=== PATIENT | female | born 1955 | race Caucasian/White ===

== ENCOUNTER → 2017-05-14 | Outpatient (CLI) | payer BC ==
[~2017-05-14] MED LIST: ADVIL200 MG PO; ATIVAN1 MG PO; COLCHICINE0.6 MG PO; DAYPRO600 M1 PO; FLEXERIL5 MG PO; HYDROCODONE BIT1 T11 PO; INDOCIN25 MG PO; MOTRIN800 MG PO; NAPROSYN500 MG PO; VICODIN 5/500 505 MG PO; VICODIN ES 7501 TAB PO; ZOFRAN ODT4 MG SL
[2017-05-14 16:06] LABS: BODY FLUID WBC 6834 /uL
[2017-05-14 17:54] LABS: BF LYMPHOCYTES 1 %; BF MACROPHAGES 12 %; BF NEUTROPHILS 87 %
[2017-05-15 15:12] LABS: ACID FAST SMEAR Negative (.)
== END | disposition home or self-care (01) ==
LOC: LAB 14:48
PROVIDERS: Physician Assistant
DX: M25.461 Effusion, right knee (principal)

== ENCOUNTER 2018-09-12 15:02 | Inpatient (IN) | payer BC ==
--- NOTE | 2018-09-11 19:10 | NUR ---
A 62, admitted to 4E, under the services of HARMAN Taylor DO with a diagnosis of ACUTE BRONCHITIS, TACHYCARDIA. Chief complaint is COUGH, COLD-LIKE SYMPTOMS. Patient arrived via ambulatory from ER. Monitor applied. Initial assessment completed. Vital signs taken and recorded. HARMAN TAYLOR DO notified of admission to the unit. Orders received. See assessment for past medical history, medications and allergies. Patient and/or family oriented to unit. [facility] visitation policy reviewed. Clothing/patient valuable form completed. FRANKY GUZMAN
[~2018-09-12] VITALS: Ht 162.5 cm; Wt 67.7 kg
[2018-09-12] VITALS (8 sets, daily range): BP systolic 142–168; BP diastolic 94–101
--- NOTE | ~2018-09-12 | EKG ---
[place], [place] ELECTROCARDIOGRAM REPORT NAME: CHEN GRANADOS UNIT #: [id number] ROOM: 415 DOCTOR: CLAUDIO DRAFT REPORT BIRTHDATE: [birth year] [facility] Test Date: 2018-09-12 Test Time: 19:59:52 Pat Name: CHEN GRANADOS Department: Room: [facility] 1 Gender: F Shoulder Sawyer: Delmis Pineda : 1955 Requested By: NIRALI MORENO Order Number: [id number] Reading MD: Thai Cee MD Measurements Intervals [place] Rate: 111 P: 10 MA: 162 QRS: 47 QRSD: 81 T: 25 QT: 348 QTc: 473 Interpretive Statements Sinus tachycardia Consider left ventricular hypertrophy Electronically Signed On 09-13-2018 10:50:56 PST by Thai Cee MD CM:EKGRPT:ELECTROCARDIOGRAM REPORT [id number] NIRALI SOUTH DRAFT REPORT NIRALI MORENO DO
--- NOTE | ~2018-09-12 | EKG ---
[place], [place] ELECTROCARDIOGRAM REPORT NAME: CHEN GRANADOS UNIT #: [id number] ROOM: 415 DOCTOR: CLAUDIO DRAFT REPORT BIRTHDATE: [birth year] [facility] Test Date: 2018-09-12 Test Time: 15:52:10 Pat Name: CHEN GRANADOS Department: Room: 415 Gender: F Manufacturing Industrial Engineer: KELECHI : 1955 Requested By: PK MORENO Order Number: [id number] Reading MD: Thai Cee MD Measurements Intervals [place] Rate: 116 P: 76 IN: 139 QRS: 34 QRSD: 85 T: 14 QT: 330 QTc: 459 Interpretive Statements Sinus tachycardia Probable left atrial enlargement Electronically Signed On 09-13-2018 10:49:14 PST by Thai Cee MD CM:EKGRPT:ELECTROCARDIOGRAM REPORT [id number] S[address]TH DRAFT REPORT PK MORENO DO
--- NOTE | ~2018-09-12 | EKG ---
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
[2018-09-12 15:50] LABS: BASO # 0.1 10*3/uL (0.0-0.1); BASO % 0.8 % (0.0-1.0); EOS # 0.2 10*3/uL (0.0-0.4); EOS % 1.9 % (1.0-4.0); HEMATOCRIT 43.6 % (37.0-47.0); HEMOGLOBIN 13.9 g/dl (12.0-16.0); LYMPH # 1.8 10*3/uL (1.3-4.4); LYMPH % 18.6 % (27.0-41.0); MEAN CORPUSCULAR HGB CONC 31.9 g/dl (33.0-37.0); MEAN PLATELET VOLUME 9.2 fl (9.6-12.3); MONO # 0.5 10*3/uL (0.1-1.0); MONO % 5.1 % (3.0-9.0); NEUT # 7.3 10*3/uL (2.3-7.9); NEUT % 73.4 % (47.0-73.0); PLATELET COUNT AUTOMATED 301 10*3/uL (130-400); RED BLOOD COUNT 4.79 10*6/uL (4.10-5.10); RED CELL DISTRI WIDTH 12.1 % (0-14.5); WHITE BLOOD COUNT 9.9 10*3/uL (4.8-10.8)
[2018-09-12 15:59] LABS: INTERNATIONAL NORM RATIO 0.9 (2.0-3.5)
[2018-09-12 16:07] LABS: ALBUMIN 3.9 gm/dl (3.1-4.5); ALKALINE PHOSPHATASE 57 U/L (45-117); BUN 13 mg/dl (7-24); CHLORIDE 107 mmol/L (98-107); LIPASE 196 U/L (73-393); POTASSIUM 3.7 mmol/L (3.5-5.1); SGOT/AST 26 IU/L (3-35); SGPT/ALT 39 U/L (12-78); SODIUM 143 mmol/L (136-145); TOTAL PROTEIN 7.5 gm/dL (6.4-8.2)
[2018-09-12 16:09] LABS: TROPONIN I < 0.015 ng/ml (<0.045)
--- NOTE | 2018-09-12 18:16 | NUR ---
PT RETURNED FROM CT SCAN @ THIS TIME AND NO ADDITIONAL COMPLAINTS VOICED,FAMILY FRIEND @ BEDSIDE.
[2018-09-12 18:58] LABS: BILIRUBIN NEGATIVE (NEGATIVE); BLOOD NEGATIVE (NEGATIVE); CLARITY CLEAR (CLEAR); COLOR YELLOW (YELLOW); GLUCOSE NEGATIVE (NEGATIVE); KETONE 2+ (NEGATIVE); LEUKO ESTERASE NEGATIVE (NEGATIVE); NITRITE NEGATIVE (NEGATIVE); PH 5.5 (5.0-9.0); SPECIFIC GRAVITY 1.025 (1.005-1.030); UROBILINOGEN 0.2 E.U./dl (0.2-1.0)
[2018-09-12 19:17] LABS: WBC 0-2 wbc/hpf (0-5)
[2018-09-12] MEDS ORDERED: DICLOFENAC SOD75 MG PO (19:20)
--- NOTE | 2018-09-12 19:20 | NUR ---
MED REC UP TO DATE PER PT RECALL. PATIENT IS AWAKE, ALERT, AND ORIENTED TO PERSON, PLACE, AND TIME.
--- NOTE | 2018-09-12 19:43 | NUR ---
NOTIFIED OF MANUAL BP 148/96 WITH HR 120S-130S. ALSO DISCUSSED EKG. RN WILL CALL WHEN NEXT EKG DONE.
--- NOTE | 2018-09-12 20:00 | NUR ---
IV METOPROLOL GIVEN PER ONE TIME ORDER. EKG IN ROOM. WILL NOTIFY MD WHEN DONE.
--- NOTE | 2018-09-12 20:05 | NUR ---
NOTIFIED OF EKG DONE. HR 111. INSTRUCTED TO TAKE VITALS Q1H X3 HOURS AND CALL WITH HR EACH HOUR.
--- NOTE | 2018-09-12 21:47 | NUR ---
NOTIFIED OF PATIENT'S BP 140/90 MANUALLY AND HR IN 100S PER CM. DISCUSSED BOLUS STATUS AND IVF ORDERED FROM ER. NO NEW ORDERS RECEIVED AT THIS TIME.
--- NOTE | 2018-09-12 22:30 | NUR ---
CEPACHOL LOZENGE ADMINISTERED PER PRN ORDER FOR C/O COUGHING. WILL MONITOR EFFECTIVENESS. CALL LIGHT LEFT IN REACH.
[2018-09-13] VITALS: BP 131/85
--- NOTE | 2018-09-13 05:02 | NUR ---
NOTIFIED THAT MED REC UP TO DATE AND HOME MEDS NOT ORDERED.
[2018-09-13 05:58] LABS: BASO # 0.1 10*3/uL (0.0-0.1); BASO % 0.9 % (0.0-1.0); EOS # 0.2 10*3/uL (0.0-0.4); EOS % 2.6 % (1.0-4.0); HEMATOCRIT 40.3 % (37.0-47.0); HEMOGLOBIN 13.5 g/dl (12.0-16.0); LYMPH # 2.1 10*3/uL (1.3-4.4); LYMPH % 26.2 % (27.0-41.0); MEAN CELL VOLUME 88.4 fl (81.0-99.0); MEAN CORPUSCULAR HGB 29.6 pg (27.0-31.0); MEAN CORPUSCULAR HGB CONC 33.5 g/dl (33.0-37.0); MEAN PLATELET VOLUME 9.2 fl (9.6-12.3); MONO # 0.5 10*3/uL (0.1-1.0); MONO % 5.8 % (3.0-9.0); NEUT # 5.2 10*3/uL (2.3-7.9); NEUT % 64.3 % (47.0-73.0); PLATELET COUNT AUTOMATED 310 10*3/uL (130-400); RED BLOOD COUNT 4.56 10*6/uL (4.10-5.10); RED CELL DISTRI WIDTH 12.3 % (0-14.5); WHITE BLOOD COUNT 8.1 10*3/uL (4.8-10.8)
[2018-09-13 06:22] LABS: ALBUMIN 3.3 gm/dl (3.1-4.5); ALKALINE PHOSPHATASE 52 U/L (45-117); BUN 10 mg/dl (7-24); CHLORIDE 110 mmol/L (98-107); CHOLESTEROL 177 mg/dL (<200); CREATININE 0.57 mg/dL (0.55-1.02); HDL CHOLESTEROL 59 mg/dl (40-60); LDL CHOLESTEROL 104 mg/dL (9-159); PHOSPHOROUS 3.1 mg/dL (2.5-4.9); POTASSIUM 3.4 mmol/L (3.5-5.1); SGOT/AST 19 IU/L (3-35); SGPT/ALT 30 U/L (12-78); SODIUM 145 mmol/L (136-145); TOTAL PROTEIN 6.7 gm/dL (6.4-8.2); TRIGLYCERIDES 68 mg/dl (<150); VLDL CHOLESTEROL 14 mg/dL (6-40)
[2018-09-13 06:31] LABS: INTERNATIONAL NORM RATIO 0.9 (2.0-3.5)
[2018-09-13 08:00] VITALS: BP 140/76
[2018-09-13 08:05] LABS: VITAMIN D, 25-HYDROXY 60.6 ng/mL (30-100)
--- NOTE | 2018-09-13 09:00 | NUR ---
Independent Living Instructor in to talk to patient. Patient states lives at home with . There are few steps in the home. Physician: dejuan weiss Pharmacy: Home health services: none Patient's level of ADLs: INDEPENDENT Patient has working utilities: all working DME: none Follow-up physician's appointment after d/c: will be made by hospitalist nurse director upon discharge Does patient want to access PORTAL?: no Discharge plan discussed with patient, patient lives at home with , she is independent in adls and ambulation. patient states she will be going home when able and declines any home needs. KILLIAN ADRIAN
--- NOTE | 2018-09-13 10:23 | NUR ---
PATIENT MEDICATED WITH PRN TYLENOL FOR HEADACHE. RATES 12/25. WILL CHECK EFFECTIVENESS.
[2018-09-13 12:00] VITALS: BP 146/88
[2018-09-13 16:00] VITALS: BP 148/88
[2018-09-13] MEDS ORDERED: AVPAK AZITHROM250 MG PO (17:02)
--- NOTE | 2018-09-13 18:18 | NUR ---
Discharge instructions reviewed with patient/family. Patient receptive and verbalizes understanding. Follow-up care arranged. Written instructions given to patient/family. ZABRINA CHÁVEZ
== END 2018-09-13 18:18 | disposition home or self-care (01) | DRG 203 ==
LOC: ED 15:02 → 4E 17:23 → EDHOLD 17:23 → 4E 18:06
PROVIDERS: Emergency Medicine; Student in an Organized Health Care Education/Training Program; ADMIT Internal Medicine
DX: J20.9 Acute bronchitis, unspecified (principal); R00.0 Tachycardia, unspecified; R73.9 Hyperglycemia, unspecified; E83.41 Hypermagnesemia; R03.0 Elevated blood-pressure reading, without diagnosis of hypertension; M19.90 Unspecified osteoarthritis, unspecified site; E66.3 Overweight; E87.6 Hypokalemia; Z82.49 Family history of ischemic heart disease and other diseases of the circulatory system; Z68.25 Body mass index [BMI] 25.0-25.9, adult

== ENCOUNTER 2019-02-27 07:07 | Inpatient (IN) | payer BC ==
[2019-02-27] VITALS (9 sets, daily range): BP systolic 115–147; BP diastolic 60–86
[~2019-02-27] VITALS: Ht 162.5 cm; Wt 70.8 kg
--- NOTE | ~2019-02-27 | CON ---
[place], [place] REPORT OF CONSULTATION NAME: CHEN GRANADOS [facility] #: [id number] UNIT #: [id number] ROOM: [facility] DOCTOR: SANTANA PFEIFFER MD BIRTHDATE: [birth year] DOS: 02/28/2019 REASON FOR CONSULTATION: Chest pain. HISTORY OF PRESENT ILLNESS: The patient is a 63-year-old patient with history of hypertension, acid reflux, was presented to the Emergency Room with chest pain. She described this as a substernal pain, which woke her up at 3:00 in the morning. She described this as a midsternal pain with radiation to the bilateral shoulders. There are no associated symptoms. The patient's pain did not get worse with any exertion. She describes it as like a heavy feeling, and the pain is gradually relieved on its own. She has history of acid reflux for the past 2-3 weeks. She denies any nausea, vomiting. No exertional chest pains, cough or hemoptysis. No shortness of breath. No PND, no orthopnea, no palpitations. REVIEW OF SYSTEMS: Review of the 10 systems, negative except as mentioned above. PAST MEDICAL HISTORY: 1. Hypertension. 2. Acid reflux. 3. Osteoarthritis. 4. Family history of heart disease in her father. PAST SURGICAL HISTORY: History of knee surgery, history of laminectomy. SOCIAL HISTORY: The patient does not smoke, does not drink, does not use illicit drugs. ALLERGIES: Reviewed. HOME MEDICATIONS: Reviewed. FAMILY HISTORY: Father had hypertrophic cardiomyopathy, at age 36. Mother has coronary artery disease. PHYSICAL EXAMINATION: VITAL SIGNS: Blood pressure 110/74, pulse 98, respiratory rate 16, weight 70.8 kg, BMI 26.8. GENERAL: The patient was seen in the stress lab area. The patient is alert, comfortable, in no acute distress. HEENT: Pupils are round and equal. No jaundice. NECK: Supple, no distended neck veins, no carotid bruit. CHEST: Symmetrical, nontender. LUNGS: Clear to auscultation bilaterally. HEART: Regular rhythm, no S3. ABDOMEN: Bowel sounds normal. EXTREMITIES: Showed no edema. Distal pulses palpable. SKIN: Warm and dry. No cyanosis, no clubbing. RECTAL: Deferred. [place], [place] REPORT OF CONSULTATION NAME: CHEN GRANADOS UNIT #: [id number] ROOM: [facility] DOCTOR: MARGARETTE KOENIG,SANTANA BIRTHDATE: [birth year] GENITOURINARY: Deferred. NEUROLOGIC: The patient is alert. No focal neurologic deficit. REVIEW OF THE DIAGNOSTIC TESTS: Her EKG and labs reviewed. EKG showed no acute ischemic changes. Her labs are unremarkable. Cardiac troponins are negative. IMPRESSION: 1. Chest pain, atypical, myocardial infarction ruled out. 2. Hypertension, stable. 3. Acid reflux. 4. Family history of coronary artery disease. RECOMMENDATIONS: 1. The patient is scheduled for Lexiscan stress test today. 2. The patient is slightly tachycardic at resting. 3. The blood pressures are stable. 4. If the Lexiscan stress is unremarkable, she can be discharged home today. SANTANA PFEIFFER MD CM:CONSTR:REPORT OF CONSULTATION 2223 03/07/19 0830 interface
--- NOTE | ~2019-02-27 | EKG ---
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
--- NOTE | ~2019-02-27 | EKG ---
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
--- NOTE | ~2019-02-27 | EKG ---
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
--- NOTE | ~2019-02-27 | ST ---
[place], [place] EXERCISE STRESS TEST REPORT NAME: CHEN GRANADOS [facility] #: [id number] UNIT #: [id number] ROOM: [facility] DOCTOR: MARGARETTE KOENIG,SANTANA BIRTHDATE: [birth year] DOS: 02/28/2019 REASON FOR TEST: Chest pain. PHYSICAL EXAMINATION NECK: Supple. LUNGS: Clear anteriorly. HEART: Regular rhythm. PROTOCOL: Lexiscan protocol. Maximum heart 161. Peak blood pressure 140/80. SYMPTOMS: The patient is chest pain free. EKG: Resting EKG shows sinus rhythm. Stress EKG showed no ischemia. POST-STRESS COMPLICATIONS: None. The patient received 50 mg of aminophylline for her tachycardia. The patient received a total of 0.4 mg Lexiscan. SANTANA PFEIFFER MD CM:STRESS:EXERCISE STRESS TEST REPORT [id number] 0100 SANTANA PFEIFFER MD
[~2019-02-27 07:07] MED LIST changes: +AVPAK AZITHROM250 MG PO; +DICLOFENAC SOD75 MG PO; +LEVOFLOXACIN500 MG PO; +NEURONTIN100 MG PO; +PREDNISONE10 MG PO; +PROAIR HFA8.5 GM INH; +TESSALON PERLE100 MG PO
[2019-02-27] MEDS ORDERED: LORAZEPAM0.5 MG PO (07:17)
[2019-02-27] MEDS ORDERED: LISINOPRIL5 MG PO (07:17)
[2019-02-27] MEDS ORDERED: FLUOXETINE HCL10 MG PO (07:18)
[2019-02-27 07:53] LABS: BASO % 0.6 % (0.0-1.0); EOS # 0.1 10*3/uL (0.0-0.4); HEMATOCRIT 43.1 % (37.0-47.0); HEMOGLOBIN 14.3 g/dl (12.0-16.0); LYMPH % 29.7 % (27.0-41.0); MEAN CELL VOLUME 89.8 fl (81.0-99.0); MEAN CORPUSCULAR HGB 29.8 pg (27.0-31.0); MEAN CORPUSCULAR HGB CONC 33.2 g/dl (33.0-37.0); MEAN PLATELET VOLUME 9.2 fl (9.6-12.3); MONO # 0.3 10*3/uL (0.1-1.0); MONO % 4.9 % (3.0-9.0); NEUT # 4.3 10*3/uL (2.3-7.9); NEUT % 63.7 % (47.0-73.0); PLATELET COUNT AUTOMATED 329 10*3/uL (130-400); RED CELL DISTRI WIDTH 12.4 % (0-14.5); WHITE BLOOD COUNT 6.7 10*3/uL (4.8-10.8)
[2019-02-27 08:02] LABS: ACT PARTIAL THROMBO TIME 25.7 SECONDS (20.0-32.1); INTERNATIONAL NORM RATIO 0.9 (2.0-3.5)
[2019-02-27 08:18] LABS: ALBUMIN 3.9 gm/dl (3.1-4.5); ALKALINE PHOSPHATASE 49 U/L (45-117); BUN 11 mg/dl (7-24); CHLORIDE 106 mmol/L (98-107); CREATININE 0.74 mg/dL (0.55-1.02); POTASSIUM 3.6 mmol/L (3.5-5.1); SGOT/AST 16 IU/L (3-35); SGPT/ALT 23 U/L (12-78); SODIUM 143 mmol/L (136-145); TOTAL PROTEIN 7.2 gm/dL (6.4-8.2)
[2019-02-27 08:19] LABS: LIPASE 156 U/L (73-393)
[2019-02-27 08:26] LABS: TROPONIN I < 0.015 ng/ml (<0.045)
--- NOTE | 2019-02-27 08:30 | NUR ---
PT REMAINS IN SINUS RHYTHM MEDICATED FOR PAIN. IT WAS EXPLAINED TO THE PATIENT ABOUT A CT CHEST SHE HAS NO FUTHER QUESTIONS AT THIS TIME. LEXIS QUINTEROS RN.
--- NOTE | 2019-02-27 10:46 | NUR ---
PT IS AWARE SHE IS WAITING FOR CAT SCAN RESULTS. STATES THE MEDICATION HAS HELPED AND SHE IS PAIN FREE AT THIS TIME. LEXIS QUINTEROS RN
--- NOTE | 2019-02-27 12:30 | NUR ---
[place] 63, admitted to 5E, under the services of ODALIS Porras DO with a diagnosis of CHEST PAIN RULE OUT M/I. Chief complaint is CHEST PAIN. Patient arrived via ambulatory from ER. Monitor applied. Initial assessment completed. Vital signs taken and recorded. ODALIS PORRAS DO notified of admission to the unit. Orders received. See assessment for past medical history, medications and allergies. Patient and/or family oriented to unit. [address] visitation policy reviewed. Clothing/patient valuable form completed. EMILIE OROZCO
--- NOTE | 2019-02-27 14:18 | NUR ---
TYLENOL AND TUMS GIVEN PER PRN ORDER FOR C/O INDIGESTION AND HEADACHE. WILL MONITOR EFFECTIVENESS.
--- NOTE | 2019-02-27 15:30 | NUR ---
EARLIER MEDS EFFECTIVE PER PT.
--- NOTE | 2019-02-27 17:00 | NUR ---
Patient resting quietly with no c/o discomfort. Respirations easy and regular. Vital signs stable. No overt distress. EMILIE OROZCO
--- NOTE | 2019-02-27 19:58 | NUR ---
24 HR chart check completed.
--- NOTE | 2019-02-27 20:00 | NUR ---
24 HR chart check completed.
--- NOTE | 2019-02-27 22:23 | NUR ---
TUMS GIVEN ORDERED AND PER PATIENT REQUEST FOR COMPLAINTS OF HEART BURN.
--- NOTE | 2019-02-27 22:54 | NUR ---
DENIES HEART BURN. TUMS EFFECTIVE.
[2019-02-28] VITALS: BP 105/68
[2019-02-28 06:21] LABS: BASO % 0.7 % (0.0-1.0); EOS # 0.2 10*3/uL (0.0-0.4); EOS % 2.5 % (1.0-4.0); HEMATOCRIT 41.5 % (37.0-47.0); HEMOGLOBIN 13.6 g/dl (12.0-16.0); LYMPH # 2.1 10*3/uL (1.3-4.4); LYMPH % 35.8 % (27.0-41.0); MEAN CORPUSCULAR HGB 29.5 pg (27.0-31.0); MEAN CORPUSCULAR HGB CONC 32.8 g/dl (33.0-37.0); MEAN PLATELET VOLUME 9.1 fl (9.6-12.3); MONO # 0.4 10*3/uL (0.1-1.0); MONO % 6.4 % (3.0-9.0); NEUT # 3.2 10*3/uL (2.3-7.9); NEUT % 54.3 % (47.0-73.0); PLATELET COUNT AUTOMATED 330 10*3/uL (130-400); RED BLOOD COUNT 4.61 10*6/uL (4.10-5.10); RED CELL DISTRI WIDTH 12.4 % (0-14.5)
[2019-02-28 06:51] LABS: BUN 10 mg/dl (7-24); CHLORIDE 107 mmol/L (98-107); CHOLESTEROL 175 mg/dL (<200); CREATININE 0.65 mg/dL (0.55-1.02); HDL CHOLESTEROL 67 mg/dl (40-60); LDL CHOLESTEROL 89 mg/dL (9-159); POTASSIUM 3.7 mmol/L (3.5-5.1); SODIUM 142 mmol/L (136-145); TRIGLYCERIDES 96 mg/dl (<150); VLDL CHOLESTEROL 19 mg/dL (6-40)
[2019-02-28 06:57] LABS: ACT PARTIAL THROMBO TIME 25.8 SECONDS (20.0-32.1); INTERNATIONAL NORM RATIO 0.9 (2.0-3.5)
[2019-02-28 07:51] LABS: VITAMIN D, 25-HYDROXY 64.6 ng/mL (30-100)
[2019-02-28 08:00] VITALS: BP 110/74
--- NOTE | 2019-02-28 08:00 | NUR ---
PT COMPLAINS OF HEADACHE UNMEASURABLE. MEDICATED WITH TYLENOL REQUESTED. ELLIOTT MARTIN OVANNE SN / ANTOLIN BERMUDEZ BSN CLINICAL INSTRUCTOR.
--- NOTE | 2019-02-28 09:21 | NUR ---
ATIVAN GIVEN FOR COMPLAINTS OF ANXIETY DUE TO STRESS TEST TODAY. EDUCATED PT ON WHAT TO EXPECT. PT EDUCATION HANDOUT GIVEN AND GO ON WITH STUDENT RN. WILL MONITOR EFFECTIVENESS. CALL LIGHT IN REACH.
[2019-02-28 12:00] VITALS: BP 138/74
--- NOTE | 2019-02-28 12:02 | NUR ---
PT REPORTING RELIEF FROM ANXIETY FOLLOWING ATIVAN. ATIVAN WAS EFFETIVE FOR COMPLAINTS. CALL LIGHT IN REACH. NO FURTHER COMPLAINTS VOICED.
--- NOTE | 2019-02-28 12:46 | NUR ---
DOWN FOR STRESS TEST.
--- NOTE | 2019-02-28 13:25 | NUR ---
INFORMED CONSENT OBTAINED FOR LEXISCAN NUCLEAR STRESS TEST WITH DR. MOROCHO. RESTING EKG SINUS TACHYCARDIA WITH A RESTING HR OF 103 WITH BP OF 140/80. PT COMPLETED A 1:00 LEXISCAN PROTOCOL RECEIVING LEXISCAN 0.4 MG IV OVER 10 SECONDS. HAD NO CHEST PAIN BUT DID C/O SHORTNESS OF BREATH AND "HEART BEATING FAST" THAT WAS RELIEVED IN RECOVERY. HAD NO ST CHANGES. HAD A PEAK HR OF 159 WITH BP OF 140/80. IN RECOVERY HEART RATE SLOWLY DECREASED. AT 8:00 RECOVERY HR 136 AND MEDICATED WITH AMINOPHYLLINE 50 MG IV ORDERED. LAST RECOVERY HR OF 121 WITH BP OF 128/80. DENIES ANY DISCOMFORTS. AWAITING SCANNING IN STABLE CONDITION.
--- NOTE | 2019-02-28 13:46 | NUR ---
Java Sql Developer in to talk to patient. Patient states lives at HOME with . There are FEW steps in the home. Physician: [place] Pharmacy: [facility] [place] health services: NONE Patient's level of ADLs: INDEPENDENT Patient has working utilities: YES DME: NONE Follow-up physician's appointment after d/c: WILL BE MADE BY HOSPITALIST NURSE DIRECTOR ON DISCHARGE Does patient want to access PORTAL?: NO Discharge plan PT LIVES AT HOME WITH HER AND IS INDEPENDENT IN HER CARE. PLANS TO RETURN HOME ON DISCHARGE AND WILL HAVE NO NEEDS PER PT. WILL CONTINUE TO FOLLOW. STATES SHE WILL HAVE A RIDE HOME. LEDA ROCHA
--- NOTE | 2019-02-28 14:47 | NUR ---
PT BACK TO ROOM FOLLOWING STRESS TEST.
--- NOTE | 2019-02-28 15:39 | NUR ---
PER ,THE STRESS TEST WAS NORMAL. PT IS OK FOR DISCHARGE. GINGER MANNING.
[2019-02-28 16:00] VITALS: BP 142/70
--- NOTE | 2019-02-28 17:49 | NUR ---
Discharge instructions reviewed with patient/family. Patient receptive and verbalizes understanding. Follow-up care arranged. Written instructions given to patient/family. GERMAINE SOARES
== END 2019-02-28 17:49 | disposition home or self-care (01) | DRG 880 ==
LOC: ED 07:07 → EDHOLD 11:12 → 5E 11:12
PROVIDERS: Emergency Medicine; ADMIT Internal Medicine
PROC: 4A02XM4 Measurement of Cardiac Total Activity, External Approach (ICD-10-PCS; principal; 2019-02-28)
PROC: 3E073KZ Introduction of Other Diagnostic Substance into Coronary Artery, Percutaneous Approach (ICD-10-PCS; 2019-02-28)
DX: F41.9 Anxiety disorder, unspecified (principal); I10 Essential (primary) hypertension; K21.9 Gastro-esophageal reflux disease without esophagitis; R73.9 Hyperglycemia, unspecified; G43.909 Migraine, unspecified, not intractable, without status migrainosus; M19.90 Unspecified osteoarthritis, unspecified site; Z87.01 Personal history of pneumonia (recurrent); Z79.899 Other long term (current) drug therapy; Z82.49 Family history of ischemic heart disease and other diseases of the circulatory system

== ENCOUNTER 2019-03-25 14:06 | Emergency (ER) | payer BC ==
[~2019-03-25] VITALS: Ht 162.5 cm; Wt 67.1 kg
--- NOTE | ~2019-03-25 | EKG ---
[place], [place] ELECTROCARDIOGRAM REPORT NAME: CHEN GRANADOS UNIT #: [id number] ROOM: DOCTOR: EPIPHANY DRAFT REPORT BIRTHDATE: [birth year] [facility] Test Date: 2019-03-25 Test Time: 14:16:33 Pat Name: CHEN GRANADOS Department: ER Room: Gender: F Commercial Intern: Ivelisse Raphael : 1955 Requested By: MATEO JACINTO Order Number: [id number] Reading MD: Mahendra Spencer MD Measurements Intervals [place] Rate: 120 P: 76 ID: 147 QRS: 45 QRSD: 75 T: -36 QT: 331 QTc: 468 Interpretive Statements Sinus tachycardia Probable left atrial enlargement Borderline T abnormalities, diffuse leads Compared to ECG 02/27/2019 13:42:42 T-wave abnormality now present Sinus rhythm no longer present Electronically Signed On 04-01-2019 4:00:58 PDT by Mahendra Spencer MD CM:EKGRPT:ELECTROCARDIOGRAM REPORT [id number] 0400 MATEO SNYDER DRAFT REPORT MATEO JACINTO M.D.
[~2019-03-25 14:06] MED LIST changes: +FLUOXETINE HCL10 MG PO; +LISINOPRIL5 MG PO; +LORAZEPAM0.5 MG PO
[2019-03-25 14:48] LABS: BASO # 0.1 10*3/uL (0.0-0.1); BASO % 0.7 % (0.0-1.0); EOS % 0.5 % (1.0-4.0); HEMATOCRIT 41.3 % (37.0-47.0); HEMOGLOBIN 13.8 g/dl (12.0-16.0); LYMPH # 1.7 10*3/uL (1.3-4.4); LYMPH % 18.9 % (27.0-41.0); MEAN CELL VOLUME 88.4 fl (81.0-99.0); MEAN CORPUSCULAR HGB 29.6 pg (27.0-31.0); MEAN CORPUSCULAR HGB CONC 33.4 g/dl (33.0-37.0); MEAN PLATELET VOLUME 9.2 fl (9.6-12.3); MONO # 0.4 10*3/uL (0.1-1.0); MONO % 4.8 % (3.0-9.0); NEUT # 6.6 10*3/uL (2.3-7.9); NEUT % 74.9 % (47.0-73.0); PLATELET COUNT AUTOMATED 318 10*3/uL (130-400); RED BLOOD COUNT 4.67 10*6/uL (4.10-5.10); RED CELL DISTRI WIDTH 12.3 % (0-14.5); WHITE BLOOD COUNT 8.8 10*3/uL (4.8-10.8)
[2019-03-25 15:05] LABS: ALBUMIN 3.8 gm/dl (3.1-4.5); ALKALINE PHOSPHATASE 51 U/L (45-117); BUN 8 mg/dl (7-24); CHLORIDE 107 mmol/L (98-107); CREATININE 0.61 mg/dL (0.55-1.02); POTASSIUM 3.1 mmol/L (3.5-5.1); SGOT/AST 17 IU/L (3-35); SGPT/ALT 24 U/L (12-78); SODIUM 141 mmol/L (136-145)
[2019-03-25 15:06] LABS: TROPONIN I < 0.015 ng/ml (<0.045)
[2019-03-25 15:44] VITALS: BP 128/87
[2019-03-25] MEDS ORDERED: Lopressor25 MG PO (16:02)
== END 2019-03-25 16:10 | disposition home or self-care (01) ==
LOC: ED 14:06
PROVIDERS: Emergency Medicine
DX: R00.0 Tachycardia, unspecified (principal); R00.2 Palpitations; I10 Essential (primary) hypertension; G43.909 Migraine, unspecified, not intractable, without status migrainosus; M19.90 Unspecified osteoarthritis, unspecified site; Z79.899 Other long term (current) drug therapy